=== PATIENT | male | born 1965 | race Caucasian/White ===

== ENCOUNTER 2018-04-24 10:30 | Outpatient (CLI) | payer OTHER ==
[~2018-04-24] VITALS: Ht 172.7 cm; Wt 118.4 kg
[~2018-04-24 10:30] MED LIST: ALLP100T; CFR250T; DIOVAN; ESCT10T
[2018-04-24] MEDS ORDERED: ALLO100T PO (10:45)
[2018-04-24] MEDS ORDERED: SIMV40TA4 PO (10:45)
[2018-04-24] MEDS ORDERED: LOSA100T8 PO (10:45)
[2018-04-24] MEDS ORDERED: PARO20TA5 PO (10:45)
[2018-04-24] MEDS ORDERED: AMLO5TAB7 PO (10:45)
== END 2018-04-24 10:47 | disposition home or self-care (01) ==
LOC: PREOP 10:30
PROVIDERS: ATTEND Internal Medicine
DX: Z01.818 Encounter for other preprocedural examination (principal)

== ENCOUNTER 2018-04-27 07:01 | Day surgery (SDC) | payer OTHER ==
--- NOTE | 2018-04-05 14:31 | HISTORY AND PHYSICAL ---
DATE OF SERVICE: COLONOSCOPY HISTORY AND PHYSICAL DATE OF SURGERY: 04/27/2018. HISTORY OF PRESENT ILLNESS: The patient is a 52-year-old white male referred for screening colonoscopy by Dr. Chao. He is deemed to be of average risk. He is not aware of any family history for colon cancer or polyps. He had one previous colonoscopy [address] Lisa. Electronic medical record was reviewed and it was reported as normal. He denies any bright red blood per rectum, melena, bowel habit change, weight loss or weight gain and denies dysphagia or need for any medication for heartburn. PAST MEDICAL HISTORY: Significant for hypertension and hyperlipidemia as well as generalized anxiety. He also has a history of psoriasis and is on injection, which I presume biologic therapy for. He could not tell me the name of that medication. He denies dyspnea on exertion, chest discomfort, any cardiac or pulmonary pathology. PAST SURGICAL HISTORY: He reports no past surgeries. FAMILY HISTORY: Father at age of 78 secondary to brain tumor. Mother at 68 with psoriasis that required medication that decreased her immunity. He states she had multiorgan failure, may have been the result of sepsis. 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 He has no past tobacco smoking history. He has an occasional cigar and reports on average three to four beers per night, sometimes a little more on the weekends. PHYSICAL EXAMINATION: GENERAL: Reveals a pleasant overweight white male in no acute distress. VITAL SIGNS: Blood pressure 130/70, heart rate 72 and regular. HEENT: Unremarkable. Sclerae nonicteric. NECK: Reveals no JVD, adenopathy or bruits. CHEST: Clear to auscultation. CARDIOVASCULAR: Reveals a regular rate and rhythm without murmur, S3 or S4. ABDOMEN: Soft, nontender without mass, organomegaly or bruits. Bowel sounds are normoactive in all four quadrants. EXTREMITIES: Reveal no cyanosis, clubbing or edema. ASSESSMENT AND PLAN: The patient is set up for screening colonoscopy on 04/27. He was advised to avoid aspirin and nonsteroidal medication for at least 1 week prior to the procedure and continue his current medications. With evaluation discussing colonoscopy and its rationale and review of his electronic medical record, 45 minutes of care time were spent by myself and other 15 minutes of staff time setting up the procedure and going over prep instructions. I thank you for the referral of this pleasant gentleman. Job ID: [id number] DocumentID: [id number] Dictated Date: 03/30/2018 10:40:08 [employer]per Mill Operator Date: 03/30/2018 11:34:26 Dictated By: SAMUEL BURNS MD
[~2018-04-27] VITALS: Ht 172.7 cm; Wt 118.4 kg
[~2018-04-27 07:01] MED LIST changes: +ALLO100T PO; +AMLO5TAB7 PO; +LOSA100T8 PO; +PARO20TA5 PO; +SIMV40TA4 PO
--- OUTSIDE RECORDS SUMMARY | 2018-04-27 07:04 | XMS REPORT | Continuity of Care Document ---
Author Author [facility] Organization [facility] Address Unknown Phone Unavailable Allergies Active Description Code Type Severity Reaction Onset Reported/Identified Relationship to Patient Clinical Status Yes No Known Drug Allergies [id number] Drug Allergy Unknown N/A 05/04/2007 Medications There is no data. Problems Date Dx Coded Attending Type Code Diagnosis Diagnosed By 09/09/2015 DINORA MCNEIL BILL OF MATERIALS CLERK Ot R05 09/09/2015 DINORA MCNEIL BILL OF MATERIALS CLERK Ot R05 09/09/2015 DINORA MCNEIL BILL OF MATERIALS CLERK Ot R05 09/09/2015 DINORA MCNEIL BILL OF MATERIALS CLERK Ot R05 09/09/2015 DINORA MCNEIL BILL OF MATERIALS CLERK Ot R05 09/09/2015 EWA DINORA R BILL OF MATERIALS CLERK Ot R05 09/09/2015 EWA DINORA R BILL OF MATERIALS CLERK Ot R05 03/23/2016 IGNACIA ARTHUR MD Ot M79.641 PAIN IN RIGHT HAND 03/23/2016 IGNACIA ARTHUR MD Ot M79.642 PAIN IN LEFT HAND 03/23/2016 IGNACIA ARTHUR MD Ot M79.644 PAIN IN RIGHT FINGER(S) 03/23/2016 IGNACIA ARTHUR MD Ot M79.645 PAIN IN LEFT FINGER(S) 11/10/2016 DINORA MCNEIL BILL OF MATERIALS CLERK Ot R05 COUGH 11/10/2016 DINORA MCNEIL BILL OF MATERIALS CLERK Ot J18.9 PNEUMONIA, UNSPECIFIED ORGANISM 11/10/2016 IGNACIA ARTHUR MD Ot M79.641 PAIN IN RIGHT HAND 11/10/2016 IGNACIA ARTHUR MD Ot M79.642 PAIN IN LEFT HAND 11/10/2016 IGNACIA ARTHUR MD Ot M79.644 PAIN IN RIGHT FINGER(S) 11/10/2016 IGNACIA ARTHUR MD Ot M79.645 PAIN IN LEFT FINGER(S) 04/24/2018 SAMUEL BURNS MD Ot Z01.818 ENCOUNTER FOR OTHER PREPROCEDURAL EXAMIN 04/24/2018 SAMUEL BURNS MD Ot Z01.818 ENCOUNTER FOR OTHER PREPROCEDURAL EXAMIN 04/25/2018 SAMUEL BURNS MD Ot Z01.818 ENCOUNTER FOR OTHER PREPROCEDURAL EXAMIN Procedures There is no data. Results There is no data. Encounters ACCT No. Visit Date/Time Discharge Status Pt. Type Provider Facility Loc./Unit Complaint [id number] 04/24/2018 10:30:00 04/24/2018 10:47:00 DIS Outpatient SAMUEL BURNS MD [facility] PREOP COLONOSCOPY [id number] 03/21/2016 09:57:00 03/21/2016 23:59:59 CLS Outpatient IGNACIA ARTHUR MD [facility] RAD BILATERAL HAND/THUMB PAIN [id number] 09/10/2015 09:33:00 09/10/2015 23:59:59 CLS Outpatient DINORA MCNEIL APRN [facility] RAD PNEUMONIA [id number] 09/04/2015 12:18:00 09/04/2015 23:59:59 CLS Outpatient DINORA MCNEIL APRN [facility] RAD CHRONIC COUGH [id number] 04/27/2018 08:00:00 PEN Preadmit SAMUEL BURNS MD [facility] ENDO SCREENING
[2018-04-27] MEDS ORDERED: D5 LR IV SOLUTION 1,000 ML IV ONE (07:13)
[2018-04-27] MEDS ORDERED: D5 LR IV SOLUTION 1,000 ML IV STA (07:21)
[2018-04-27] MEDS ORDERED: LIDOCAINE JELLY 2% (XYLOCAINE) 5 ML TUBE MM PRN (07:30)
[2018-04-27] MEDS ORDERED: fentaNYL INJECTION 100 MCG/2 ML AMP IVP ONE (07:30)
[2018-04-27] MEDS ORDERED: MIDAZOLAM 2 MG/2 ML (VERSED) VIAL IVP ONE (07:30)
[2018-04-27 07:38] VITALS: BP 120/82
[2018-04-27] MEDS ORDERED: fentaNYL INJECTION 100 MCG/2 ML AMP ONE (07:55)
[2018-04-27] MEDS ORDERED: MIDAZOLAM 2 MG/2 ML (VERSED) VIAL ONE (07:55)
[2018-04-27] MEDS ORDERED: LIDOCAINE JELLY 2% (XYLOCAINE) 5 ML TUBE ONE (07:56)
--- NOTE | 2018-04-27 08:02 | Pre-Op Note & Conscious Sedat ---
Pre-Operative Progress Note H&P Reviewed The H&P was reviewed, patient examined and no changes noted. Date H&P Reviewed: Apr 27, 2018 Time H&P Reviewed: 07:55 Conscious Sedation Pre-Proced ASA Class: 2 Airway Mallampati Classification: (ruby appropriate class) I. II. III, IV Lungs Heart ASA score ASA 1: a normal healthy patient ASA 2: a patient with a mild systemic disease (mid diabetes, controlled hypertension, obesity ASA 3: a patient with a severe systemic disease that limits activity (angina , COPD, prior Myocardial infarction) ASA 4: a patient with an incapacitating disease that is a constant threat to life (CHF, renal failure) ASA 5: a moribund patient not expected to survive 24 hrs. (ruptured aneurysm) ASA 6: a declared brain patient whose organs are being harvested. For emergent operations, add the letter E after the classification Grade 2 Sedation Plan: Analgesia, Amnesia, Plan communicated to team members, Discussed options with patient/fam, Discussed risks with patient/fam Note The patient is an appropriate candidate to undergo the planned procedure, sedation, and anesthesia. The patient immediately re-assessed prior to indication. SAMUEL BURNS MD Apr 27, 2018 08:02
[2018-04-27 09:00] VITALS: BP 107/69
[2018-04-27 09:30] VITALS: BP 104/59
[2018-04-27 09:45] VITALS: BP 104/59
--- NOTE | 2018-04-27 13:12 | OPERATIVE REPORT ---
DATE OF SERVICE: 04/27/2018 COLONOSCOPY SUMMARY INDICATION FOR THE PROCEDURE: Screening colonoscopy. DESCRIPTION OF PROCEDURE: The patient was placed in left lateral decubitus position. Prior to ending colonoscopy, digital rectal evaluation was performed. Anal sphincter tone was normal. The perianal reflex was intact. There are some prominent perianal skin folds with some scarring, most likely due to past hemorrhoid, but no active internal or external hemorrhoid tissue was noted. Prostate is normal in size, anodular and nontender to digital inspection. No abnormalities were noted on digital inspection of the anal canal or distal rectal vault. The colonoscope was then inserted into the rectum under direct visualization advanced to the cecum. The cecum was identified by identification of the ileocecal valve, the cecal strap and appendiceal orifice. Photographic documentation was obtained. Careful inspection was made. The patient tolerated the procedure well. FINDINGS: There was no evidence for internal or external hemorrhoids and the rectum, sigmoid colon, descending colon, splenic flexure, transverse colon, hepatic flexure, ascending colon and cecum were unremarkable with no evidence for diverticulum, neoplasia or vascular malformation. ASSESSMENT: Normal colonoscopy to the cecum. Would advocate consideration for repeat screening colonoscopy in 10 years as the patient is not aware of any family history for colon cancer. Digital evaluation of the prostate was unremarkable as well. I thank you for the referral of this pleasant gentleman. Sincerely, Job ID: [id number] DocumentID: [id number] Dictated Date: 04/27/2018 08:56:22 Clinical Applications Specialist Date: 04/27/2018 13:11:37 Dictated By: SAMUEL BURNS MD
== END 2018-04-27 09:45 | disposition home or self-care (01) ==
LOC: ENDO 07:01
PROVIDERS: ATTEND Internal Medicine
DX: Z12.11 Encounter for screening for malignant neoplasm of colon (principal); I10 Essential (primary) hypertension; F41.9 Anxiety disorder, unspecified; L40.9 Psoriasis, unspecified; E78.5 Hyperlipidemia, unspecified; Z79.899 Other long term (current) drug therapy

== ENCOUNTER 2019-02-16 03:03 | Emergency (ER) | payer OTHER ==
[~2019-02-16] VITALS: Ht 177.8 cm; Wt 121.1 kg
[~2019-02-16 03:03] MED LIST changes: -AMLO5TAB7 PO; +AMLO5TAB9 PO; +LOSA100T57 PO; -LOSA100T8 PO
[2019-02-16] MEDS ORDERED: ONDN4T PO (03:16)
[2019-02-16] MEDS ORDERED: AMOX1TAB12 PO (03:16)
[2019-02-16 03:26] VITALS: BP_SYST 107; BP_SYST 120; BP_DIAS 70; BP_DIAS 74; BP_DIAS 75
--- NOTE | 2019-02-16 03:28 | ED Syncope ---
General Chief Complaint: Dizziness/Syncope Stated Complaint: FALL,GOOSE EGG ON HEAD,BACK PAIN, NASAL & SINUS I Source of Information: Patient, Spouse Exam Limitations: No Limitations History of Present Illness Date Seen by Provider: Feb 16, 2019 Time Seen by Provider: 03:13 Initial Comments Patient presents to ER by private conveyance with his and chief complaint that he was sitting on the toilet and had a feeling of being very hot sweating and then passed out for a few seconds and in face first on the floor. He has a large goose egg over his right eye. He says for the past several days she's had some back pain and malaise. He doesn't usually have a lot of back pain and he took some Tylenol yesterday morning which gave him modest relief. He went to see Sacha Pineda with Dr. Arthur's office and was prescribed Augmentin and ondanset alexsandra for an ear infection. He started taking it yesterday. He has a history of high blood pressure and cholesterol but no coronary disease. No previous history of surgeries. He denies dysuria or abdominal pain diarrhea. He said he was not straining have a bowel movement his stools of been soft. He has had vasovagal syncope before and it was due to being dehydrated. His says they don't own a thermometer but he has felt hot and had sweats and she thinks he had a subjective fever. History of hypertension, hyperlipidemia, generalized anxiety, psoriasis on an anti-biologic that he's been on for a long time. Patient gives further history that within the past week or 2 they were down in [facility] then in [facility] and he had picked tick that was stuck on him for maybe a day or 2 off of his trunk. He denied any rash. Allergies and Home Medications Allergies Coded Allergies: No Known Drug Allergies (Verified Allergy, Unknown, 05/04/07) Home Medications Allopurinol 100 Mg Tablet, 200 MG PO DAILY, (Reported) take 2 (100mg) tabs Amlodipine Besylate 5 Mg Tablet, 5 MG PO DAILY, (Reported) Doxycycline Hyclate 100 Mg Tablet, 100 MG PO BID Prescribed by: DORIS CHACKO on 02/16/19 0538 Losartan Potassium 100 Mg Tablet, 100 MG PO HS, (Reported) Paroxetine HCl 20 Mg Tablet, 20 MG PO DAILY, (Reported) Simvastatin 40 Mg Tablet, 40 MG PO HS, (Reported) Patient Home Medication List Home Medication List Reviewed: Yes Review of Systems Constitutional: chills, diaphoresis, fever (subjective), malaise EENTM: No ear discharge, No ear pain Respiratory: cough (occasional); No phlegm, No short of breath Cardiovascular: No chest pain, No edema Gastrointestinal: No abdominal pain, No constipation, No diarrhea; nausea; No vomiting Genitourinary: No discharge, No dysuria Musculoskeletal: back pain; No joint pain Past Iseipnb-Chryvn-Igbokz Hx Patient Social History Alcohol Use: Rarely Uses Number of Drinks Today: AA Alcohol Beverage of Choice: Beer Recreational Drug Use: No Smoking Status: Never a Smoker 2nd Hand Smoke Exposure: No Recent Foreign Travel: No Contact w/Someone Who Travel: No Recent Hopitalizations: No Immunizations Up To Date Tetanus Booster (TDap): Unknown Seasonal Allergies Seasonal Allergies: Yes Past Medical History Surgeries: Yes (palate and uvula sx) Respiratory: Yes Sleep Apnea Currently Using CPAP: Yes Cardiac: Yes High Cholesterol, Hypertension Neurological: No Reproductive Disorders: No Genitourinary: No Gastrointestinal: No Musculoskeletal: Yes Gout Endocrine: No HEENT: No Cancer: No Psychosocial: Yes Anxiety, Depression Integumentary: Yes Psoriasis Blood Disorders: No Physical Exam Vital Signs Vital Signs - First Documented 02/16/19 03:11 Temp 99.2 Pulse 68 Resp 18 B/P (MAP) 125/79 (94) Pulse Ox 96 O2 Delivery Room Air Capillary Refill : Height, Weight, BMI Height: 5'8.00" Weight: 261lbs. 0.0oz. 118.441704wi; 39.7 BMI Method: General Appearance: No Apparent Distress, WD/WN HEENT: PERRL/EOMI, TMs Normal, Normal ENT Inspection, Pharynx Normal, Moist Mucous Membranes, Other ( nontender) Neck: Full Range of Motion, Normal Inspection, Non Tender, Supple Cardiovascular: Regular Rate, Rhythm, No Edema, No Gallop, Normal Peripheral Pu lses Respiratory: Chest Non Tender, Lungs Clear, Normal Breath Sounds, No Accessory Muscle Use, No Respiratory Distress Gastrointestinal: Normal Bowel Sounds, Non Tender, Soft Back: Normal Inspection, No CVA Tenderness, No Vertebral Tenderness Extremities: Normal Capillary Refill, Normal Inspection, Normal Range of Motion, Non Tender, No Pedal Edema Neurologic/Psychiatric: Alert, Oriented x3, No Motor/Sensory Deficits, Normal Mood/Affect Cranial Nerves: Normal Hearing, Normal Speech, PERRL Coordination/Gait: Normal Gait Motor/Sensory: No Motor Deficit, No Sensory Deficit Skin: Normal Color, Warm/Dry Progress/Results/Core Measures Results/Orders Lab Results Laboratory Tests Test 02/16/19 03:20 02/16/19 05:02 Range/Units White Blood Count 2.7 L 4.3-11.0 10^3/uL Red Blood Count 4.74 4.35-5.85 10^6/uL Hemoglobin 15.4 13.3-17.7 G/DL Hematocrit 44 40-54 % Mean Corpuscular Volume 92 80-99 FL Mean Corpuscular Hemoglobin 33 25-34 PG Mean Corpuscular Hemoglobin Concent 35 32-36 G/DL Red Cell Distribution Width 12.3 10.0-14.5 % Platelet Count 106 L 130-400 10^3/uL Mean Platelet Volume 9.4 7.4-10.4 FL Neutrophils (%) (Auto) 47 42-75 % Lymphocytes (%) (Auto) 37 12-44 % Monocytes (%) (Auto) 14 H 0-12 % Eosinophils (%) (Auto) 0 0-10 % Basophils (%) (Auto) 2 0-10 % Neutrophils # (Auto) 1.3 L 1.8-7.8 X 10^3 Lymphocytes # (Auto) 1.0 1.0-4.0 X 10^3 Monocytes # (Auto) 0.4 0.0-1.0 X 10^3 Eosinophils # (Auto) 0.0 0.0-0.3 10^3/uL Basophils # (Auto) 0.0 0.0-0.1 10^3/uL Sodium Level 136 135-145 MMOL/L Potassium Level 4.2 3.6-5.0 MMOL/L Chloride Level 100 98-107 MMOL/L Carbon Dioxide Level 23 21-32 MMOL/L Anion Gap 13 5-14 MMOL/L Blood Urea Nitrogen 17 7-18 MG/DL Creatinine 1.76 H 0.60-1.30 MG/DL Estimat Glomerular Filtration Rate 40 BUN/Creatinine Ratio 10 Glucose Level 114 H 70-105 MG/DL Calcium Level 9.0 8.5-10.1 MG/DL Corrected Calcium 8.8 8.5-10.1 MG/DL Total Bilirubin 0.9 0.1-1.0 MG/DL Aspartate Amino Transf (AST/SGOT) 70 H 5-34 U/L Alanine Aminotransferase (ALT/SGPT) 66 H 0-55 U/L Alkaline Phosphatase 56 40-136 U/L Troponin I < 0.028 <0.028 NG/ML C-Reactive Protein High Sensitivity 6.66 H 0.00-0.50 MG/DL B-Type Natriuretic Peptide 14.1 <100.0 PG/ML Total Protein 7.6 6.4-8.2 GM/DL Albumin 4.2 3.2-4.5 GM/DL Thyroid Stimulating Hormone (TSH) 4.37 0.35-4.94 UIU/ML Serum Alcohol < 10 <10 MG/DL Urine Color YELLOW Urine Clarity CLEAR Urine pH 5 5-9 Urine Specific [place] 1.025 H 1.016-1.022 Urine Protein 2+ H NEGATIVE Urine Glucose (UA) NEGATIVE NEGATIVE Urine Ketones 2+ H NEGATIVE Urine Nitrite NEGATIVE NEGATIVE Urine Bilirubin 1+ H NEGATIVE Urine Urobilinogen 4 H NORMAL MG/DL Urine Leukocyte Esterase 1+ H NEGATIVE Urine RBC (Auto) 1+ H NEGATIVE Urine RBC 0-2 /HPF Urine WBC NONE /HPF Urine Squamous Epithelial Cells 5-10 /HPF Urine Crystals NONE /LPF Urine Bacteria TRACE /HPF Urine Casts NONE /LPF Urine Mucus LARGE H /LPF Urine Culture Indicated NO Urine Opiates Screen NEGATIVE NEGATIVE Urine Oxycodone Screen NEGATIVE NEGATIVE Urine Methadone Screen NEGATIVE NEGATIVE Urine Propoxyphene Screen NEGATIVE NEGATIVE Urine Barbiturates Screen NEGATIVE NEGATIVE Ur Tricyclic Antidepressants Screen NEGATIVE NEGATIVE Urine Phencyclidine Screen NEGATIVE NEGATIVE Urine Amphetamines Screen NEGATIVE NEGATIVE Urine Methamphetamines Screen NEGATIVE NEGATIVE Urine Benzodiazepines Screen NEGATIVE NEGATIVE Urine Cocaine Screen NEGATIVE NEGATIVE Urine Cannabinoids Screen NEGATIVE NEGATIVE My Orders Orders - DORIS CHACKO Ct Head/Cervical Spine Wo (02/16/19 03:20) Chest 1 View, Ap/Pa Only (02/16/19 03:20) Alcohol (02/16/19 03:20) BNP (02/16/19 03:20) Cbc With Automated Diff (02/16/19 03:20) Comprehensive Metabolic Panel (02/16/19 03:20) Hs C Reactive Protein (02/16/19 03:20) Drug Screen Stat (Urine) (02/16/19 03:20) Thyroid Stimulating Hormone (02/16/19 03:20) Ua Culture If Indicated (02/16/19 03:20) Troponin I (02/16/19 03:20) Ed Iv/Invasive Line Start (02/16/19 03:20) Orthostatic Vital Signs (Adult (02/16/19 03:20) Ekg Tracing (02/16/19 03:20) Continuous Ekg Monitoring (02/16/19 03:20) Ondansetron Injection (Zofran Injectio (02/16/19 03:30) Ketorolac Injection (Toradol Injection) (02/16/19 03:30) Ed Iv/Invasive Line Start (02/16/19 04:07) Lactated Ringers (Lr 1000 Ml Iv Solution (02/16/19 04:07) Ed Iv/Invasive Line Start (02/16/19 05:04) Lactated Ringers (Lr 1000 Ml Iv Solution (02/16/19 05:04) Tick Panel With Lyme Eia (02/16/19 05:35) Medications Given in ED Current Medications Medications Dose Ordered Sig/Paramjit Route Start Time Stop Time Status Last Admin Dose Admin Ketorolac Tromethamine 30 mg ONCE ONCE IVP 02/16/19 03:30 02/16/19 03:31 DC 02/16/19 03:32 30 MG Lactated Ringer's 1,000 ml @ 0 mls/hr Q0M ONCE IV 02/16/19 04:07 02/16/19 04:09 DC 02/16/19 04:12 0 MLS/HR Lactated Ringer's 1,000 ml @ 0 mls/hr Q0M ONCE IV 02/16/19 05:04 02/16/19 05:05 DC 02/16/19 05:14 0 MLS/HR Ondansetron HCl 4 mg ONCE ONCE IVP 02/16/19 03:30 02/16/19 03:31 DC 02/16/19 03:25 4 MG Vital Signs/I&O 02/16/19 02/16/19 03:11 03:26 Temp 99.2 Pulse 68 79 79 85 Resp 18 B/P (MAP) 125/79 (94) 120/75 (90) 107/74 (85) 107/70 (82) Pulse Ox 96 O2 Delivery Room Air Progress Progress Note #1: Time: 03:26 Progress Note Patient presents with what appears to be a vasovagal syncope on the toilet. He was not straining. We'll get some orthostatic vital signs EKG CBC, CMP, BNP, troponin. He has a large goose egg on his right forehead that is with only superficial skin tear. He doesn't want anything for pain right now. We'll check urine since he's having back pain. Zofran for his nausea and IV. He used the oral Zofran and did not think it helped very much. Dehydration versus occult infection versus lumbago? Progress Note #2: Time: 05:36 Progress Note The patient was able to produce some urine however it was a small amount and is very concentrated. We will give him a second liter of fluids. Initial ECG Impression Date: Feb 16, 2019 Initial ECG Impression Time: 03:26 Initial ECG Rate: 65 Initial ECG Rhythm: Normal Sinus Initial ECG Intervals: Normal Initial ECG Impression: Normal Comment No clinically evident ST elevation or depression. Diagnostic Imaging Diagonstic Imaging: Xray Plain Films/CT/US/NM/MRI: chest (1v) Comments Unremarkable 1 view chest x-ray. Reviewed: Reviewed by Me Diagonstic Imaging: CT (without IV contrast) Plain Films/CT/US/NM/MRI: c-spine, head Comments No skull fracture or intracranial hemorrhage. Degenerative changes. No evidence of fracture. Reviewed: Reviewed by Me Departure Impression Primary Impression: Leukopenia Qualified Codes: D72.819 - Decreased white blood cell count, unspecified Additional Impressions: Dehydration Acute nontraumatic kidney injury Back pain Qualified Codes: M54.5 - Low back pain Febrile illness, acute Gastroenteritis Disposition: 01 HOME, SELF-CARE Condition: Stable Departure-Patient Inst. Decision time for Depature: 05:35 Referrals: IGNACIA ARTHUR MD (PCP/Family) Primary Care Physician Patient Instructions: Dehydration, Adult (DC) Add. Discharge Instructions: Stay out of the heat for the next several days and drink lots of fluids. Sports drinks are appropriate. Stop taking the Augmentin. Start taking the doxycycline one capsule twice a day to completion for the next 10 days. If your symptoms worsen or you have fever above 102.5 or you're unable to control them with Tylenol 1000 mg every 8 hours and heating pad plus topical ointments and you should return to the ER. If your symptoms are not improving in 3-4 days then you should follow-up with primary care. For your back you can use Tylenol 650 mg every 8 hours in addition to hydrocodone one tablet every 6 hours as needed. Topical creams, heating pads and a back brace can be helpful. For your diarrhea you can use 2 tablets of Imodium followed by one tablet every 4 hours if you're still having watery stools. Stick to a diet that avoids red meat, dairy, spicy foods. All discharge instructions reviewed with patient and/or family. Voiced u nderstanding. Scripts Hydrocodone Bit/Acetaminophen (Hydrocodone/Acetaminophen 5/325mg Tablet) 1 Tab Tab 1 EACH PO Q4-6HR PRN for PAIN-MODERATE MDD 10 for 3 Days, #14 TAB 0 Refills Prov: DORIS CHACKO 02/16/19 Doxycycline Hyclate (Doxycycline Hyclate) 100 Mg Tablet 100 MG PO BID for 10 Days, #20 TAB 0 Refills Prov: DORIS CHACKO 02/16/19 Copy Copies To 1: IGNACIA ARTHUR MD, TITUS J Feb 16, 2019 03:28
[2019-02-16 03:30] LABS: BASOPHILS % (AUTO) 2 % (0-10); EOSINOPHILS % (AUTO) 0 % (0-10); HEMATOCRIT 44 % (40-54); HEMOGLOBIN 15.4 G/DL (13.3-17.7); LYMPHOCYTES % (AUTO) 37 % (12-44); MEAN CORPUSCULAR HEMOGLOBIN 33 PG (25-34); MEAN CORPUSCULAR HGB CONC 35 G/DL (32-36); MEAN CORPUSCULAR VOLUME 92 FL (80-99); MEAN PLATELET VOLUME 9.4 FL (7.4-10.4); MONOCYTES # (AUTO) 0.4 X 10^3 (0.0-1.0); MONOCYTES % (AUTO) 14 % (0-12); NEUTROPHILS # (AUTO) 1.3 X 10^3 (1.8-7.8); NEUTROPHILS % (AUTO) 47 % (42-75); PLATELET COUNT 106 10^3/uL (130-400); RED CELL DISTRIBUTION WIDTH 12.3 % (10.0-14.5); WHITE BLOOD COUNT 2.7 10^3/uL (4.3-11.0)
[2019-02-16] MEDS ORDERED: ONDANSETRON 4 MG/2 ML (SDV) Z0FRAN IVP ONE (03:30)
[2019-02-16] MEDS ORDERED: KETOROLAC 30 MG/ML VIAL IVP ONE (03:30)
--- NOTE | 2019-02-16 03:33 | NUR ---
pt unable to void at this time. informed of anticipated lab processing time.
[2019-02-16 03:47] LABS: ALANINE AMINOTRANSFERASE 66 U/L (0-55); ALBUMIN 4.2 GM/DL (3.2-4.5); ALKALINE PHOSPHATASE 56 U/L (40-136); BILIRUBIN,TOTAL 0.9 MG/DL (0.1-1.0); BUN/CREATININE RATIO 10; CARBON DIOXIDE 23 MMOL/L (21-32); CHLORIDE 100 MMOL/L (98-107); CREATININE SERUM 1.76 MG/DL (0.60-1.30); GFR ESTIMATED 40; GLUCOSE 114 MG/DL (70-105); POTASSIUM 4.2 MMOL/L (3.6-5.0); SODIUM 136 MMOL/L (135-145); TOTAL PROTEIN 7.6 GM/DL (6.4-8.2)
[2019-02-16] MEDS ORDERED: LACTATED RINGERS 1,000 ML IV ONE ×2 (04:07→05:04)
--- NOTE | 2019-02-16 04:14 | NUR ---
pt reports pain/nausea improved. unable to void at this time. denies needs at this time.
[2019-02-16 05:14] LABS: CLARITY,URINE CLEAR; COLOR,URINE YELLOW; GLUCOSE, URINE (UA) NEGATIVE (NEGATIVE); KETONES,URINE 2+ (NEGATIVE); LEUKOCYTE ESTERASE ,URINE 1+ (NEGATIVE); NITRITE,URINE NEGATIVE (NEGATIVE); PH,URINE 5 (5-9); PROTEIN,URINE 2+ (NEGATIVE); UROBILINOGEN,URINE 4 MG/DL (NORMAL)
[2019-02-16 05:23] LABS: BACTERIA,URINE TRACE /HPF; BILIRUBIN,URINE 1+ (NEGATIVE); RBC,URINE 0-2 /HPF
[2019-02-16 05:26] LABS: AMPHETAMINE SCREEN, URINE NEGATIVE (NEGATIVE); BARBITURATE SCREEN URINE NEGATIVE (NEGATIVE); BENZODIAZEPINES SCREEN URINE NEGATIVE (NEGATIVE); CANNABINOID SCREEN, URINE NEGATIVE (NEGATIVE); COCAINE SCREEN URINE NEGATIVE (NEGATIVE); METHADONE STAT NEGATIVE (NEGATIVE); METHAMPHETAMINE SCREEN URINE S NEGATIVE (NEGATIVE); OPIATE SCREEN URINE NEGATIVE (NEGATIVE); OXYCODONE STAT NEGATIVE (NEGATIVE); PROPOXYPHENE STAT NEGATIVE (NEGATIVE); TRICYCLIC ANTIDEPRESSANTS SCRE NEGATIVE (NEGATIVE)
[2019-02-16] MEDS ORDERED: DOXY100T2 PO (05:38)
[2019-02-16 06:20] VITALS: BP 110/73
[2019-02-16] MEDS ORDERED: ACHD5005 PO (06:20)
--- NOTE | 2019-02-16 08:01 | Diagnostic Imaging Report ---
PATIENT HISTORY: Fall, trauma. TECHNIQUE: Frontal view of the chest. COMPARISON: 09/10/2015 FINDINGS: Lung volumes are mildly low. No focal consolidation is seen. There is no pleural effusion or pneumothorax. The cardiac silhouette is normal in size and contour. Findings appear stable since 2016. IMPRESSION: Low lung volumes with no acute pulmonary abnormality seen. Dictated by: Dictated on workstation # [id number]
--- NOTE | 2019-02-16 08:14 | Diagnostic Imaging Report ---
PROCEDURE: CT head and CT cervical spine without contrast. TECHNIQUE: Multiple contiguous axial images were obtained through the brain and cervical spine without the use of intravenous contrast. Sagittal and coronal reformations through the cervical spine were then performed. Auto Exposure Controls were utilized during the CT exam to meet ALARA standards for radiation dose reduction. INDICATION: Fall Head: There is no hemorrhage, hydrocephalus, edema, mass, mass effect or evidence for elevated intracranial pressures. The basilar cisterns are patent. No focal or generalized cerebral edema. The ventricular system nondilated and nondisplaced. No calvarial fracture deformity. No hemo-sinus. CT cervical spine: No cervical fracture or dislocation. There is lower cervical spondylosis and facet arthrosis with no facet joint dislocation. IMPRESSION: CT head: No acute intracerebral pathology CT cervical spine: Degenerative changes but no fracture or traumatic malalignment Dictated by: Dictated on workstation # [id number]
== END 2019-02-16 06:27 | disposition home or self-care (01) ==
LOC: EDUNIT# 03:03 → ER 03:07
DX: N17.9 Acute kidney failure, unspecified (principal); K52.9 Noninfective gastroenteritis and colitis, unspecified; E86.0 Dehydration; D72.819 Decreased white blood cell count, unspecified; M54.9 Dorsalgia, unspecified; I10 Essential (primary) hypertension; E78.00 Pure hypercholesterolemia, unspecified; F41.1 Generalized anxiety disorder; G47.30 Sleep apnea, unspecified; M10.9 Gout, unspecified; F41.9 Anxiety disorder, unspecified; F32.9 Major depressive disorder, single episode, unspecified
CPT/HCPCS: 36415; 70450; 71045; 72125; 80053; 80306; 80320; 81000; 83880; 84443; 84484; 85025; 86141; 86618; 86666; 86668; 86757; 93005; 93041; 96361; 96374; 96375

== ENCOUNTER → 2020-09-24 | Outpatient (CLI) | payer BC, OTHER ==
[~2020-09-24] MED LIST changes: +ACHD5005 PO; +AMLO-250 PO; -AMLO5TAB9 PO; +AMOX1TAB12 PO; +DOXY100T2 PO; +ONDN4T PO; +SIMV40TA25 PO; -SIMV40TA4 PO
== END ==
LOC: LABNPT 05:30
PROVIDERS: ATTEND Internal Medicine
DX: U07.1 COVID-19 (principal)
CPT/HCPCS: 87635

== ENCOUNTER → 2022-01-25 | Outpatient (CLI) | payer BC ==
[~2022-01-25] VITALS: Ht 177 cm; Wt 279.0 kg
[~2022-01-25] MED LIST changes: +REGADENOSON 0.4 MG/5 ML SYR (LEXISCAN) IV ONE
[2022-01-25] MEDS: CATHETER FLUSH 10 ML SYR IVP PRN ×2 (07:44→09:28)
[2022-01-25 09:27] VITALS: BP 133/76
--- NOTE | 2022-01-26 15:14 | STRESS TEST ---
DATE OF SERVICE: 01/25/2022 RESTING AND POST REGADENOSON TECHNETIUM-99M TETROFOSMIN SPECT CT IMAGING ORDERING PHYSICIAN: Dr. Ryan. PRIMARY PHYSICIAN: Dr. Chao. CLINICAL DIAGNOSIS: Syncope. Baseline images were carried out after injection of 10.34 mCi of technetium-99m Tetrofosmin. This was followed by 0.4 mg Regadenoson and 28.3 mCi of technetium-99m Tetrofosmin for stress imaging. The electrocardiogram showed sinus rhythm and did not change significantly with the Regadenoson infusion. The patient tolerated the procedure well. Review of images at rest and following stress does not indicate any distinct perfusion defects consistent with significant myocardial ischemia or infarction. Some degree of diaphragmatic attenuation is seen both at rest and following Regadenoson infusion. Gated images show normal global left ventricular systolic function and normal regional wall motion, including the diaphragmatic wall of the left ventricle. Left ventricular ejection fraction is calculated to be 53%. Left ventricular end-diastolic volume is 122 mL. CONCLUSIONS: 1. Mild cardiomegaly. 2. No evidence of significant myocardial ischemia or infarction on this study. Normal regional wall motion. 3. Left ventricular ejection fraction is calculated to be 52%. Job ID: [id number] DocumentID: [id number] Dictated Date: 01/26/2022 09:36:04 Director Learning And Development Date: 01/26/2022 15:13:24 Dictated By: AL RYAN MD, MA, FACP, FACC,
== END ==
PROVIDERS: ATTEND Internal Medicine Cardiovascular Disease
DX: R55 Syncope and collapse (principal)
CPT/HCPCS: 78452; 93017; A9502

== ENCOUNTER → 2022-01-26 | Outpatient (CLI) | payer BC ==
[~2022-01-26] MED LIST changes: -REGADENOSON 0.4 MG/5 ML SYR (LEXISCAN) IV ONE
== END ==
LOC: CARD 08:30
PROVIDERS: ATTEND Internal Medicine Cardiovascular Disease
DX: I35.1 Nonrheumatic aortic (valve) insufficiency (principal)
CPT/HCPCS: 93225; 93226; 93306

== ENCOUNTER → 2022-02-14 | Outpatient (CLI) | payer BC ==
[~2022-02-14] MED LIST changes: +CATHETER FLUSH 10 ML SYR IV PRN; +HOLD METFORMIN - RECEIVED CONTRAST 20 ML VIAL IV SCH; +IOHEXOL 350 MG/ML 100 ML (OMNIPAQUE 350) VIAL IV ONE; +NS 100 ML (IVPB) BAG IV ONE
--- NOTE | 2022-02-14 17:28 | Diagnostic Imaging Report ---
PROCEDURE: CT angiography of the chest with contrast. TECHNIQUE: Multiple contiguous axial images were obtained through the chest after uneventful bolus administration of intravenous contrast. 3D reconstructed CTA MIP acquisitions were also performed. Auto Exposure Controls were utilized during the CT exam to meet ALARA standards for radiation dose reduction. DATE: February 14, 2022. COMPARISON: Chest radiographs September 10, 2015. INDICATION: 56-year-old male, history of thoracic aortic aneurysm without rupture. Followup. FINDINGS: There is a normal variant azygous lobe. There is no identified pulmonary nodule. There is no lung mass. There is no focal airspace consolidation. There is no pneumothorax. There is no pleural effusion. The central airways are patent. There is no identified pulmonary embolus. The main pulmonary artery diameter measures 3.1 cm which is beyond upper limits of normal. This can be seen with pulmonary artery hypertension. The heart is not enlarged. There is no pericardial effusion. The proximal ascending aorta measures up to 3.6 cm in diameter. The descending aorta measures up to approximately 2.7 cm in diameter. There is no thoracic aortic aneurysm. There is no evidence of aortic dissection. There is no identified abnormally enlarged mediastinal, hilar, or axillary lymph node which meets CT size criteria for adenopathy. The imaged portions of the upper abdomen are grossly unremarkable in appearance. There are atherosclerotic calcifications noted. There are degenerative changes of the spine. There is no identified acute bony abnormality. IMPRESSION: CT CHEST. 1. No evidence of thoracic aortic aneurysm. 2. Abnormally dilated main pulmonary artery diameter suggesting pulmonary artery hypertension. 3. No identified pulmonary embolus or other acute cardiopulmonary abnormality. Dictated by: Dictated on workstation # [id number]
== END ==
LOC: RAD 15:15
PROVIDERS: ATTEND Nurse Practitioner Family
DX: I71.2 Thoracic aortic aneurysm, without rupture (principal)
CPT/HCPCS: 71275

== ENCOUNTER → 2022-05-02 | Outpatient (CLI) | payer BC ==
[~2022-05-02] MED LIST changes: -CATHETER FLUSH 10 ML SYR IV PRN; -HOLD METFORMIN - RECEIVED CONTRAST 20 ML VIAL IV SCH; -IOHEXOL 350 MG/ML 100 ML (OMNIPAQUE 350) VIAL IV ONE; -NS 100 ML (IVPB) BAG IV ONE
--- NOTE | 2022-05-02 11:12 | Diagnostic Imaging Report ---
INDICATION: Hand arthritis and pain COMPARISON: 03/21/2016 TECHNIQUE: 6 radiographs of bilateral hands dated 05/02/2022. FINDINGS: Right: No acute fracture or dislocation. No destructive osseous process. Carpal alignment is well-maintained. Scattered osseous degenerative changes are present. Degenerative changes are greatest involving the 1st CMC joint where there is significant joint space narrowing and prominent osteophyte formation. Additional scattered degenerative changes are present, including involving scattered interphalangeal joints and the 2nd MCP joint with joint space narrowing and osteophyte formation. No suspicious radiopaque foreign body. Left: No acute fracture or dislocation. No destructive osseous process. Scattered degenerative changes are present, by far greatest involving the 1st CMC joint where there is joint space narrowing and prominent osteophyte formation. Findings have progressed since 2016. Additional scattered degenerative changes are present which are mild in severity, including scattered interphalangeal joints. Carpal alignment is well-maintained. IMPRESSION: No acute osseous abnormality with mild to moderate scattered degenerative changes, worsened since 2016. Findings are by far greatest involving the bilateral 1st CMC joint. Dictated by: Dictated on workstation # [id number]
== END ==
LOC: RAD 08:52
PROVIDERS: ATTEND Internal Medicine
DX: M19.042 Primary osteoarthritis, left hand (principal); M19.041 Primary osteoarthritis, right hand